=== PATIENT | male | born 1975 | race Caucasian/White ===

== ENCOUNTER 2020-12-03 12:01 | Emergency (ER) | payer MEDICAID ==
[~2020-12-03] VITALS: Ht 170.2 cm; Wt 84.1 kg
[2020-12-03 12:20] VITALS: BP 142/95
--- NOTE | 2020-12-03 13:47 | NUR ---
[employer] IN ROOM TO APPLY SLING TO LEFT ARM.
[2020-12-03] MEDS ORDERED: HYDR-4383 PO (14:13)
[2020-12-04] MEDS ORDERED: HYDR-4383 PO (11:01)
== END 2020-12-03 13:52 | disposition home or self-care (01) ==
LOC: ER 12:02
DX: M25.512 Pain in left shoulder (principal); Z79.899 Other long term (current) drug therapy
CPT/HCPCS: 73030; 99283